=== PATIENT | female | born 1990 | race Caucasian/White ===

== ENCOUNTER 2024-05-23 14:35 | Emergency (ER) | payer MEDICAID, SELFPAY ==
[2024-05-23 14:37] VITALS: BP 122/87; PULSE 89; RESP 16; TEMP 36.5; O2SAT 98
[2024-05-23 14:39] VITALS: BMI 20.7
--- NOTE | 2024-05-23 15:13 | EDNOTE_ITS ---
ED Psych RME/HPI General Chief Complaint: Psychiatric Symptoms Stated Complaint: SELF DANGER/DANGER OF OTHERS Time Seen by Provider: 05/23/24 15:09 Arrival date/time: 05/23/24 14:35 RME / HPI RME / HPI Narrative: 34-year-old female patient with significant history of schizophrenia, noncompliant with her medication, was brought in by EMS for 5150 hold. Apparently patient admits to smoking meth yesterday. Patient was released from the assisted today, and was noted to be running in front of the car and was placed on 5150 hold right away by law enforcement. On my initial evaluation patient is violent shouting and very aggressive. Patient denies any homicidal or suicidal ideation. Related Data Previous Rx's ?Medication ?Instructions ?Recorded albuterol sulfate 90 mcg/actuation 2 puff inhalation Q ID PRN 01/20/21 aerosol inhaler shortness of breath or wheez ing #8.5 grams Allergies Allergy/AdvReac Type Severity Reaction Status Date / Time No Known Allergies Allergy Verified 01/15/21 11:03 Review of Systems Review of Systems Narrative Review of Systems: Review of system reviewed and within normal limits except mentioned in HPI ED Exam Narrative Physical exam: VITAL SIGNS: Reviewed. GENERAL APPEARANCE: Alert and aggressive, violent, anxious HEAD AND FACE: Non-traumatic. ENT: PERRL, pink conjunctivitis, eyelid no trauma, Mucous membrane moist. NECK: Supple, nontender, no nuchal rigidity. CHEST: No tenderness, no crepitus, no paradoxical movement, no retractions. LUNGS: Clear, well ventilated, symmetric, no rales, no wheezing, no ronchi, no stridor, good breath sounds bilaterally. HEART: Regular rate, regular rhythm, no murmur, no gallops. ABDOMEN: Soft, positive bowel sounds, nondistended, no guarding, nontender, no rebound, no masses, RECTAL: Deferred. GENITAL: Deferred. NEUROLOGICAL: Gross motor function intact sensory function intact, Appropriate for age. MUSCULOSKELETAL: low back nontender, full range of motion. EXTREMITIES: Nontender, full range of motion. SKIN: Color pink, dry, no rash, no lacerations, no abrasions, no contusions. LYMPHATICS: Deferred. Course Quality Measures none Orders Category Date Time Status 4 HR Behavioral Restraints Q15M Care 05/23/24 15:15 Completed Diet Regular Diet 05/24/24 Breakfast Active Acetaminophen Stat Lab 05/23/24 15:29 Completed Alcohol, Blood Medical Stat Lab 05/23/24 15:29 Completed Basic Metabolic Panel Stat Lab 05/23/24 15:29 Completed CBC Stat Lab 05/23/24 15:29 Completed Drug Screen,Urine Stat Lab 05/23/24 03:56 Completed HCG Qualitative,Urine Stat Lab 05/23/24 03:56 Completed Magnesium Stat Lab 05/24/24 04:40 Completed Potassium Stat Lab 05/24/24 12:08 Completed Salicylate Stat Lab 05/23/24 15:29 Completed Urinalysis Stat Lab 05/23/24 03:56 Completed DiphenhydrAMINE INJ [Benadryl Inj] Med 05/23/24 15:11 Discontinued 50 mg IM X1 ONE Haloperidol Lactate [Haldol Inj] Med 05/23/24 15:11 Discontinued 5 mg IM X1 ONE LORazepam [Ativan Inj] Med 05/23/24 15:11 Discontinued 2 mg IM X1 ONE Magnesium Sulfate 2 GM Ivpb [Magnesium Sulfate Ivpb] Med 05/24/24 03:57 Discontinued 2 gm in 50 ml IV X1 POTASSIUM CHL 10 mEq IVPB [Kcl Ivpb] Med 05/24/24 03:56 Discontinued 10 meq in 100 ml IV Q1H POTASSIUM CHL 10 mEq IVPB [Kcl Ivpb] Med 05/23/24 21:59 Discontinued 10 meq in 100 ml IV X1 Potassium Chloride [K-Dur] Med 05/23/24 21:59 Discontinued 40 meq PO X1 ONE Potassium Chloride [K-Dur] Med 05/23/24 23:14 Discontinued 40 meq PO X1 ONE Ringers Lactated 1000 ml [Lactated Ringers] 1,000 ml Med 05/23/24 22:00 Disco ntinued IV 999 mls/hr Sodium Chloride 0.9% 1000 ml [Ns] 1,000 ml Med 05/24/24 03:55 Discontinued IV 999 mls/hr Vital Signs Vital signs: Vital Signs Temperature 97.7 F 05/23/24 14:37 Pulse Rate 89 05/23/24 14:37 Respiratory Rate 16 05/23/24 14:37 Blood Pressure 122/87 H 05/23/24 14:37 Pulse Oximetry (%) 98 05/23/24 14:37 Oxygen Delivery Method Room Air 05/23/24 14:37 Psych MDM Narrative MDM Narrative:: 34-year-old female patient with significant history of schizophrenia, noncompliant with her medication, was brought in by EMS for 5150 hold. Apparently patient admits to smoking meth yesterday. Patient was released from the assisted today, and was noted to be running in front of the car and was placed on 5150 hold right away by law enforcement. On my initial evaluation patient is violent shouting and very aggressive. Patient denies any homicidal or suicidal ideation. Care transferred to Dr. Soliz at 11 PM for final disposition Patient data External records reviewed:: None Clinical information provided by:: patient Social determinants that could affect healthcare access:: mental health Patient has the following chronic illnesses:: None How is presenting disease/condition affected by chronic disease/condition?: exacerbated by Evaluation data The following diagnostics were reviewed and interpreted by me:: lab results Lab and/or radiology exams considered but not ordered:: None Interpretation Summary: Pending results Medications / Prescriptions Medications or Prescriptions considered but not ordered:: None Medication administrations:: Medication Administration History Discontinued Medications Diphenhydramine HCl (Diphenhydramine Inj 50 Mg/Ml Vial) 50 mg IM X1 ONE Stop: 05/23/24 15:12 Last Admin: 05/23/24 15:22 Dose: 50 mg Documented By: VG Haloperidol Lactate (Haloperidol Lact Inj 5 Mg/Ml Vial) 5 mg IM X1 ONE Stop: 05/23/24 15:12 Last Admin: 05/23/24 15:23 Dose: 5 mg Documented By: VG Potassium Chloride (Kcl Ivpb) 10 meq in 100 mls @ 100 mls/hr IV X1 ONE Stop: 05/23/24 22:58 Last Infusion: 05/24/24 00:29 Dose: Infused Documented By: Admin: 05/23/24 23:04 Dose: 100 mls/hr Documented By: JOSE Lactated Ringer's (Lactated Ringers) 1,000 mls @ 999 mls/hr IV .Q1H1M ONE Stop: 05/23/24 23:00 Last Infusion: 05/24/24 00:29 Dose: Infused Documented By: Admin: 05/23/24 23:06 Dose: 999 mls/hr Documented By: CB Sodium Chloride (Ns) 1,000 mls @ 999 mls/hr IV .Q1H1M ONE Stop: 05/24/24 04:55 Last Infusion: 05/24/24 05:05 Dose: Infused Documented By: Admin: 05/24/24 04:04 Dose: 999 mls/hr Documented By: KG Potassium Chloride (Kcl Ivpb) 10 meq in 100 mls @ 100 mls/hr IV Q1H LUDY Stop: 05/24/24 07:55 Last Infusion: 05/24/24 09:30 Dose: Infused Documented By: Admin: 05/24/24 08:10 Dose: 75 mls/hr Documented By: Infusion: 05/24/24 08:00 Dose: Infused Documented By: Admin: 05/24/24 06:40 Dose: 75 mls/hr Documented By: Infusion: 05/24/24 06:40 Dose: Infused Documented By: Admin: 05/24/24 05:26 Dose: 75 mls/hr Documented By: Infusion: 05/24/24 05:20 Dose: Infused Documented By: Admin: 05/24/24 04:08 Dose: 100 mls/hr Documented By: KG Magnesium Sulfate (Magnesium Sulfate Ivpb) 2 gm in 50 mls @ 25 mls/hr IV X1 ONE Stop: 05/24/24 05:56 Last Infusion: 05/24/24 06:14 Dose: Infused Documented By: Admin: 05/24/24 04:08 Dose: 25 mls/hr Documented By: KG Lorazepam (Lorazepam 2 Mg/Ml Vial) 2 mg IM X1 ONE Stop: 05/23/24 15:12 Last Admin: 05/23/24 15:23 Dose: 2 mg Documented By: VG Potassium Chloride (Potassium Chloride 20 Meq Tabcr) 40 meq PO X1 ONE Stop: 05/23/24 22:00 Last Admin: 05/23/24 23:05 Dose: 40 meq Documented By: CB Potassium Chloride (Potassium Chloride 20 Meq Tabcr) 40 meq PO X1 ONE Stop: 05/23/24 23:15 Last Admin: 05/24/24 02:11 Dose: Not Given Documented By: KG Non-Admin Reason: Patient Refused Benadryl, Haldol, Ativan, and potassium replacement patient was also given IV fluids Consultations Consultation(s) initiated? (list below): No Diagnosis Psych Differential Diagnosis: acute psychosis, chronic schizophrenia, suicidal ideation and drug-induced psychotic disorder Most likely diagnosis given after review of the tests above:: Drug induced psychotic behavior Admission Indicated Admission indicated?: not indicated Admission Request Was there a request for admission?: No Disposition Plan Disposition Plan: Discharge Discharge Attestation Discharge Attestation: The patient and all family members were given an opportunity to ask questions and understood the discharge instructions. Discharge instructions specifically effects, indications for sooner follow up or return to the emergency department, and the expected course of current diagnosis. Patient condition: Stable Discharge Plan Plan Patient Disposition: HOME (Self Care) Prescriptions/Referrals Prescriptions/Med Rec: No Action albuterol sulfate 90 mcg/actuation HFA aerosol inhaler 2 puff inhalation QID PRN (Reason: shortness of breath or wheezing) Qty: 8.5 0RF Referrals: No Primary/Family,Physician [Primary Care Provider] - In 1 week Problem List Clinical Impression: Methamphetamine abuse, Drug-induced psychotic disorder Patient/Caregiver Discharge Instructions Education Materials: ED Drug Abuse, ED Psychosis Additional Instructions: Stop using drugs. You can follow-up with your primary care doctor and or [facility] if you feel ready for drug and/or alcohol rehabilitation. Follow- up as per your safety plan. You can return to the emergency department sooner symptoms worsen or if he notes any new, concerning issues. Print Language: [place] Citizen Stand Alone Forms: Milly Award Info., Patient Portal Info Letter
--- NOTE | 2024-05-23 15:15 | PC.NURSE ---
pt agressive, yelling, and cursing at staff. refusing to answer questions including columbia scale.
[2024-05-23] MEDS: DiphenhydrAMINE INJ 50 MG/ML VIAL IM (15:22)
--- NOTE | 2024-05-23 15:22 | PC.SS ---
Addendum entered by SARA Fofana 05/23/24 17:14: SS update: patient to be evaluated in the AM. Patient pending toxicology and labs. Updated bed side nurse on status. Addendum entered by SARA Fofana 05/23/24 16:53: SS update: received updated 5150 Hold with correct dates from [facility] Clinician Yamile Keys. Updated 5150 Hold placed in patient's chart and SS binder. Addendum entered by SARA Fofana 05/23/24 16:45: ASW established contact with the patient. Patient lying asleep, unable to engage in assessment. Patient had code potter called earlier. Patient was being verbally aggressive with staff. Per progress note, the patient reported recent methamphetamine substance use. Currently, patient's labs and toxicology report is pending. Of note, the patient has had multiple visits to the ED related to methamphetamine substance use and has previously been on 5150 hold in the past for similar reasons. Addendum entered by SARA Fofana 05/23/24 15:50: SS update: Received email of 5150 Hold by Clinician Yamile Keys, however date on second page still appears to be incorrect. Notified Yamile via phone call to make aware to complete all updated/correct dates. Original Note: Patient BIBA on a 5150 Hold initiated by [facility] Clinician Yamile Keys indicating Danger to Self and Gravely Disabled. The hold indicates the patient was running through traffic and not responding or able to contract for safety plan. ASW reviewed hold and noticed dates on 5150 Hold are incorrect. Contacted [facility] Clinician Yamile Keys to make aware and update hold dates.
[2024-05-23] MEDS: LORazepam 2 MG/ML VIAL IM (15:23)
[2024-05-23] MEDS: HALOPERIDOL LACT INJ 5 MG/ML VIAL IM (15:23)
[2024-05-23 16:11] LABS: Basophils % (Auto) 0 % (0-2.5); Eosinophils # (Auto) 0.2 Thou/mm3 (0.0-0.5); Eosinophils % (Auto) 2 % (0-10); Hematocrit 33.7 % (36.0-46.0); Hemoglobin 11.9 g/dL (12.0-16.0); Immature Granulocytes % (Auto) 0 % (0-0); Immature Granulocytes Auto 0.04 Thou/mm3 (0.00-0.00); Lymphocytes % (Auto) 25 % (10-50); Mean Corpuscular HGB Conc 35.3 g/dl (31.0-37.0); Mean Corpuscular Hemoglobin 28.1 pg (25.0-35.0); Mean Corpuscular Volume 80 fL (80-100); Monocytes # (Auto) 0.9 Thou/mm3 (0.0-0.8); Monocytes % (Auto) 8 % (0-12); Neutrophils % (Auto) 65 % (37-80); Nucleated Red Blood Cell % 0 /100 WBC (0); Platelet Count 205 Thou/mm3 (140-440); RDW Standard Deviation 45.1 fL (36.4-46.3); Red Blood Count 4.23 Miln/mm3 (4.00-5.20); White Blood Count 12.3 Thou/mm3 (3.6-11.0)
[2024-05-23 16:43] LABS: Acetaminophen < 2.0 mcg/mL (10.0-20.0); Alcohol, Blood Medical < 3.0 mg/dL (0-10.0); Anion Gap 14 (7-16); BUN/Creatinine Ratio 15 Ratio (12-20); Blood Urea Nitrogen 12 mg/dL (9-23); Calcium 9.2 mg/dL (8.3-10.6); Carbon Dioxide 28.3 mMol/L (20.0-31.0); Chloride 97 mMol/L (98-107); Creatinine (Component) 0.8 mg/dL (0.6-1.3); Estimated Creatinine Clearance 88.7 mL/min (>60); Glucose 99 mg/dL (74-106); Osmolality,Calculated 277 (275-295); Salicylate < 3.0 mg/dL; Sodium 139 mMol/L (136-145); eGFR > 60 See Note
[2024-05-23 17:16] LABS: Potassium 2.5 mMol/L (3.4-5.1)
[2024-05-23 17:59] VITALS: BP 92/60; PULSE 73; RESP 18; TEMP 36.6; O2SAT 100
--- NOTE | 2024-05-23 21:59 | PC.NURSE ---
Informed by sharon that pt has low blood pressure - informed provider Crisjun - verbal order to give pt IV fluids.
[2024-05-23 22:02] VITALS: BP 86/57; PULSE 62; RESP 14; TEMP 36.6; O2SAT 100
[2024-05-23] MEDS: POTASSIUM CHL 10 mEq IVPB 10 MEQ/100 ML BAG 100 MEQ IV (23:04)
[2024-05-23] MEDS: POTASSIUM CHLORIDE 20 mEq TABCR 40 MEQ PO (23:05)
[2024-05-23] MEDS: RINGERS LACTATED 1000 ML 1,000 ML 999 ML IV (23:06)
--- NOTE | 2024-05-23 23:17 | PD.EDADDENDU ---
Emergency Room Addendum Addendum Narrative: 2300: Care assumed from Kevin Pacheco NP. Past medical, surgical, social and family history reviewed. Vitals and home medications reviewed. Results and treatment plan discussed. I will assume the care of the patient at this time and will follow the patient, pending repeat potassium. Please refer to the emergency department record for history and examination from initial visit. Patient refused to take Potassium PO. Additional KCl 10mEq given. Magnesium level is pending. 0600: Care signed out to Dr. Garvey (emergency physician). Past medical, surgical, social and family history reviewed. Vitals and home medications reviewed. Results and treatment plan discussed. They will assume the care of the patient at this time and will follow the patient, pending medical clearance for crisis evaluation.
[2024-05-24 01:41] VITALS: BP 92/60; PULSE 66; RESP 17; TEMP 36.6; O2SAT 100
--- NOTE | 2024-05-24 02:11 | PC.NURSE ---
Pt refusing to take PO potassium - Dr Soliz aware.
[2024-05-24] MEDS: SODIUM CHLORIDE 0.9% 1000 ML 1,000 ML 999 ML IV (04:04)
[2024-05-24] MEDS: Magnesium Sulfate 2 GM Ivpb 2 GM/50 ML BAG IV (04:08)
[2024-05-24] MEDS: POTASSIUM CHL 10 mEq IVPB 10 MEQ/100 ML BAG 100 MEQ IV (04:08)
[2024-05-24 04:14] LABS: Collection Type, Urine Clean Catch
[2024-05-24 04:17] LABS: Bilirubin,Urine Negative (Negative); Blood,Urine Negative (Negative); Clarity,Urine Turbid (Clear/Hazy); Color,Urine Yellow (Lt Yel-Yel); Glucose, Urine Negative (Negative); Hyaline Casts,Urine < 1 /hpf (0-1); Ketones,Urine 2+ (Negative); Leukocyte Esterase,Urine Positive (Negative); Nitrite,Urine Negative (Negative); Protein,Urine 1+ (Neg - Trace); RBC,Urine 7 /hpf (0-3); Specific Gravity,Urine 1.029 (1.001-1.035); Squamous Epithelial Cell,Urine 2 /hpf (0-5); WBC,Urine 30 /hpf (0-5)
[2024-05-24 04:20] LABS: HCG Qualitative,Urine Negative
[2024-05-24 04:46] LABS: Amphetamine/Methamp Scrn,U Positive (Negative); Barbiturate Screen,Urine Negative (Negative); Benzodiazepines Screen,Urine Negative (Negative); Benzoylecgonine Screen, Ur Negative (Negative); Fentanyl Screen,Urine Negative (Negative); Opiate Screen,Urine Negative (Negative); THC Screen,Urine Negative (Negative)
[2024-05-24] MEDS: POTASSIUM CHL 10 mEq IVPB 10 MEQ/100 ML BAG 75 MEQ IV ×3 (05:26→08:10)
[2024-05-24 05:41] VITALS: BP 95/65; PULSE 80; RESP 18; TEMP 36.6; O2SAT 100
[2024-05-24 06:03] LABS: Magnesium 2.1 mg/dL (1.6-2.6)
[2024-05-24 06:37] VITALS: BP 105/62; PULSE 62; RESP 16; TEMP 36.6; O2SAT 99
--- NOTE | 2024-05-24 06:44 | EDNOTE_ITS ---
Emergency Room Addendum Addendum Narrative: 0600: Care assumed from Dr. Soliz, the previous shift emergency physician. Past medical, surgical, social and family history reviewed. Vitals and home medications reviewed. I will assume the care of the patient at this time, pending repeat labs and medical clearance for mental health evaluation. Please refer to the emergency department record for history and examination from initial visit.? EMS notes reviewed by me. Nursing notes reviewed by me. Vital signs reviewed by me. [facility] medical records reviewed by me. Patient has multiple ED visits for psych and methamphetamine use, dating back to 2020. 34 year old female with history of schizophrenia and methamphetamine use presented to the ED yesterday placed on a 5150 hold. Labs were performed and it was noted patients potassium was 2.5. It was documented she declined to take PO potassium and given IV KCl. 1415: Patient medically cleared for mental health evaluation. 1452: ASW has met with the patient and states the 5150 hold was rescinded as the patient does not meet criteria. Patient was referred to [facility] and received AOD services. Has an appointment 05/29/2024 at 09:00 am with Edwina Allen. DISPOSITION: Home DIAGNOSIS: Methamphetamine abuse, drug-induced psychotic disorder
--- NOTE | 2024-05-24 07:32 | PC.CC ---
Addendum entered by Kalee Marcelino 05/24/24 10:05: ASWKalee attempted to engage with patient. Patient continues to be asleep unable to engage with ASW. Original Note: Patient is pending medical clearance and re-evaluation from ASW upon clearance.
[2024-05-24 08:39] VITALS: BP 92/63; PULSE 56; RESP 19; TEMP 36.6; O2SAT 100
--- NOTE | 2024-05-24 09:28 | PC.NURSE ---
pt came in due to 5150 hold and to be medically cleared by provider. pt is currently getting K rider replacements for low K+. pt is responding normally at this time. pt is cooperative and non violent. sitter at bedside.
[2024-05-24 12:29] LABS: Potassium 3.8 mMol/L (3.4-5.1)
[2024-05-24 14:40] VITALS: BP 88/55; PULSE 58; RESP 16; TEMP 36.6; O2SAT 100
--- NOTE | 2024-05-24 14:51 | PC.CC ---
Patient is a 34 year-old female who was BIBA on a 5150-Hold from [facility] Clinician, Yamile Keys. ASW, Kalee made [id number] contact with the patient introduced self, role, and reason for visit. Patient was able to engage in assessment; however had difficulty staying awake. Patient was oriented to self, location, and situation. Patient reports she was taken to long term and then transported to hospital. Patient reports she does not live in [place] and lives in [place]. Patient provided updated home address which was provided to registration. Patient reports she has a history of depression but is not connected to outpatient mental health services. Patient is not taking any psychotropic medications. Patient denied current SI/HI/AH/VH. Patient denied past suicide attempts. Per patient, she has not been on 5150-hold and placed at an [facility] facility. Patient reports her substance of choice is methamphetamine and uses almost daily. Patient provided consent to get collateral information from her mother, Su Malagon. ASW attempted to make telephone contact with her mother but was unsuccessful as she did not answer the phone. ASW made telephone contact with [facility] who reports the patient was connected to [facility] but was discharged for not attending her appointments. Upon clinical consultation with Rajwinder Fay, patient does not meet criteria for 5150-hold and the hold will be rescinded. ASW to referred patient to [facility] and AOD services. ASW provided patient with appointment time and location for outpatient mental health. Patient?s appointment is May 29, 2024 at 9:00am with Edwina Allen. ?ASW provided community resources: Warm Line and Crisis Line.
--- NOTE | 2024-05-24 14:53 | PC.CC ---
ASW provided update of discharge plan to Dr. Garvey, senior accounting clerk Roselia, and bedside RN Soledad.
[2024-05-24 15:42] VITALS: BP 90/60; PULSE 72; RESP 14; TEMP 36.6; O2SAT 97
== END 2024-05-24 15:42 | disposition home or self-care (01) ==
PROVIDERS: Emergency Medicine; Nurse Practitioner Family; Emergency Provider Emergency Medicine
DX: Z04.6 Encounter for general psychiatric examination, requested by authority (principal); F15.159 Other stimulant abuse with stimulant-induced psychotic disorder, unspecified; F20.9 Schizophrenia, unspecified
CPT/HCPCS: 36415; 80048; 80307; 80320; 80329; 81001; 81025; 83735; 84132; 85025; 90839; 96127; 96365; 96366; 96367; 96368; 96372; 99285; J1200; J1630; J2060; J3475; J3480; J7030; J7120; A9270; G0480